=== PATIENT | female | born 1995 | race Caucasian/White ===

== ENCOUNTER 2017-05-02 07:38 | Inpatient (IN) | payer OTHER ==
[2017-05-02] VITALS (7 sets, daily range): BP systolic 122–131; BP diastolic 62–78
[~2017-05-02] VITALS: Ht 165.1 cm; Wt 101.4 kg
[~2017-05-02 07:38] MED LIST: FLEXERIL5 MG PO; MOTRIN800 MG PO; PRENATAL TABLE1 EAC3 PO; ZOFRAN4 MG PO
[2017-05-02] MEDS ORDERED: IBUPROFEN800 MG PO (11:24)
[2017-05-02] MEDS ORDERED: ENDOCET 5-3251 EACH PO (11:24)
[2017-05-03 03:20] VITALS: BP 120/60
[2017-05-03 06:40] LABS: EOSINOPHIL (%) 0.1 % (0-5); HEMATOCRIT 27.4 % (36.0-46.0); IMMATURE GRANULOCYTE (%) 0.4 % (0.0-0.7); IMMATURE GRANULOCYTE COUNT 0.1 K/uL; INSTRUMENT ABS NEUTROPHIL CT 10.4 K/uL; LYMPHOCYTE COUNT 2.3 K/uL (1.0-2.8); MCH 31.5 PG (29.0-34.0); MCHC 34.7 G/DL (30.0-36.0); MCV 90.7 FL (83-99); MEAN PLAT.VOLUME 10.2 uM^3 (9.5-12.4); MONOCYTE (%) 5.4 % (3-12); MONOCYTE COUNT 0.7 K/uL (0-0.8); NEUTROPHIL (%) 77.1 % (45-76); NEUTROPHIL COUNT 10.4 K/uL (1.8-6.4); PLATELET COUNT 201 K/uL (156-360); RBC DIS.WIDTH-CV 14.3 % (11.8-14.6); RBC DIS.WIDTH-SD 46.9 % (39-53); WHITE BLOOD COUNT 13.5 K/uL (4.1-10.2)
[2017-05-03 06:50] LABS: RED BLOOD COUNT 3.02 M/uL (3.80-5.20)
[2017-05-03 07:45] VITALS: BP 110/58
[2017-05-03 11:37] VITALS: BP 102/58
[2017-05-03 15:08] VITALS: BP 101/54
[2017-05-03 19:41] VITALS: BP 130/64
[2017-05-03 23:09] VITALS: BP 144/66
[2017-05-04 02:29] VITALS: BP 122/80
[2017-05-04 07:58] VITALS: BP 125/86
[2017-05-04 15:20] VITALS: BP 140/65
[2017-05-05 08:06] VITALS: BP 124/68
[2017-05-05 15:18] VITALS: BP 131/76
[2017-05-06 07:41] VITALS: BP 130/73
== END 2017-05-06 14:13 | disposition home or self-care (01) | DRG 766 ==
LOC: 2WEST 07:38 → 2SOUTH 10:57 → 2WEST 05-06 14:13
PROVIDERS: Obstetrics & Gynecology
PROC: 10D00Z1 Extraction of Products of Conception, Low, Open Approach (ICD-10-PCS; principal; 2017-05-02)
DX: O32.1XX0 Maternal care for breech presentation, not applicable or unspecified (principal); O69.81X0 Labor and delivery complicated by cord around neck, without compression, not applicable or unspecified; O99.824 Streptococcus B carrier state complicating childbirth; Z37.0 Single live birth; Z3A.39 39 weeks gestation of pregnancy
CPT/HCPCS: 36415; 85025; 86900; 86901; J0690; J1100; J1170; J2274; J2405; J2765; J7120

== ENCOUNTER 2017-05-12 16:42 | Emergency (ER) | payer OTHER ==
[~2017-05-12] VITALS: Ht 165.1 cm; Wt 91.0 kg
[~2017-05-12 16:42] MED LIST changes: +ENDOCET 5-3251 EACH PO; +IBUPROFEN800 MG PO
[2017-05-12 17:11] LABS: HEMATOCRIT 35.7 % (36.0-46.0); MCHC 33.3 G/DL (30.0-36.0); MCV 89.9 FL (83-99); MEAN PLAT.VOLUME 9.3 uM^3 (9.5-12.4); PLATELET COUNT 329 K/uL (156-360); RBC DIS.WIDTH-CV 13.8 % (11.8-14.6); RBC DIS.WIDTH-SD 45.4 % (39-53); RED BLOOD COUNT 3.97 M/uL (3.80-5.20); WHITE BLOOD COUNT 8.4 K/uL (4.1-10.2)
[2017-05-12 17:16] LABS: CHLORIDE 104 mEq/L (99-109); POTASSIUM 3.8 mEq/L (3.7-5.4); SODIUM 139 mEq/L (136-147)
[2017-05-12 17:18] LABS: GLUCOSE 91 mg/dL (70-99)
[2017-05-12 17:20] LABS: ANION GAP 13 MEQ/L (2-14)
[2017-05-12 17:22] LABS: GFR ESTIMATE (CALCULATED) > 59 mL/min/
[2017-05-12 17:23] LABS: UREA NITROGEN (BUN) 12 mg/dL (9-23)
[2017-05-12 20:02] LABS: ADD MIUA? YES; BILIRUBIN NEGATIVE; BLOOD MODERATE; COLOR YELLOW ((YELLOW)); GLUCOSE (STRIP) NEGATIVE; KETONES 5; LEUKOCYTES LARGE; NITRITE NEGATIVE; PROTEIN (STRIP) 30; SPECIFIC GRAVITY 1.033 (1.000-1.030); UROBILINOGEN 0.2 MG/DL (0.2-1.0)
[2017-05-12 20:22] LABS: BACTERIA 1+ /HPF; EPITHELIAL CELLS 2+ /HPF; MUCUS 1+ /LPF; RED BLOOD CELLS NONE SEEN /HPF (0-5); UCUL ADDED? YES; WHITE BLOOD CELLS 20-30 /HPF (0-5)
[2017-05-12 20:23] LABS: CASTS NONE SEEN /LPF; CRYSTALS NONE SEEN
[2017-05-12 20:24] LABS: TOTAL BILIRUBIN 0.3 mg/dL (0.0-1.0)
[2017-05-12 20:25] LABS: ALKALINE PHOSPHATASE 115 IU/L (3-129)
[2017-05-12 20:27] LABS: DIRECT BILIRUBIN 0.1 mg/dL (0.0-0.3)
[2017-05-12 20:28] LABS: LIPASE 34 U/L (1.0-51.0)
[2017-05-12] MEDS ORDERED: KEFLEX500 MG PO (23:30)
[2017-05-12] MEDS ORDERED: MOTRIN800 MG PO (23:32)
[2017-05-12 23:45] VITALS: BP 105/64
== END 2017-05-12 23:48 | disposition home or self-care (01) ==
LOC: EME 16:42
DX: N39.0 Urinary tract infection, site not specified (principal); R50.9 Fever, unspecified; Z98.890 Other specified postprocedural states; N64.4 Mastodynia
CPT/HCPCS: 74177; 80048; 80076; 81003; 83605; 83690; 85027; 87040; 87086; 99281; 99284; J0696; J1885; J7030; J7050